=== PATIENT | female | born 1990 | race Caucasian/White ===

== ENCOUNTER 2017-03-09 09:31 | Emergency (ER) | payer OTHER ==
[~2017-03-09] VITALS: Ht 157.5 cm; Wt 68.0 kg
--- NOTE | ~2017-03-09 | EKG ---
[place] [address] [facility] [place] [address] ELECTROCARDIOGRAM REPORT Name: ELIZABETHSYDNEE [id number] Admission: 03/09/17 Attend Phys: Discharge: Date of : 89 Report #: [id number] THIS REPORT FOR: //name// [facility] ED Test Date: 2017-03-09 Test Time: 10:10:51 Pat Name: SYDNEE JOHNSON Department: Room: Gender: [employer]: SANTHOSH : 1990 Requested By: Renate Garg Order Number: [id number] MD: Nacho Harris Measurements Intervals [place] Rate: 76 P: 33 OR: 111 QRS: 28 QRSD: 81 T: 20 QT: 373 QTc: 420 Interpretive Statements Sinus rhythm Borderline short OR interval No previous ECG available for comparison Electronically Signed On 03-09-2017 11:20:13 [employer] by Nacho Harris [email or web address] <ELECTRONICALLY SIGNED> By: Nacho Harris MD 03/09/17 1120 1010 1010 Nacho Harris MD /ANTOINETTE
[~2017-03-09 09:31] MED LIST: HUMULIN N100 UNIT/3; HUMULINR100; KEFLEX250 MG PO; PHENAZOPYRIDIN200 M2 PO; SYNTHROID125 MCG PO
[2017-03-09 10:17] LABS: ABSOLUTE NEUTROPHILS 3.5 thou/uL (1.4-8.2); BASOPHILS 0.4 % (0.0-2.0); EOSINOPHILS 1.4 % (0.0-3.0); HEMATOCRIT 38.4 % (37.0-47.0); HEMOGLOBIN 12.4 gm/dL (12.0-15.0); LYMPHOCYTES 23.1 % (24.0-44.0); MCH 24.7 pg (26.0-34.0); MCHC 32.3 g/dL (28.0-37.0); MCV 76.4 fL (80.0-100.0); MONOCYTES 7.9 % (1.0-8.0); PLATELET COUNT 279 thou/uL (150-400); POLYS 67.2 % (36.0-66.0); RBC 5.03 mil/uL (4.20-5.00); RDW 14.4 % (10.5-14.5); WBC 5.2 thou/uL (4.0-11.0)
[2017-03-09 10:30] LABS: POTASSIUM 4.1 mmol/L (3.5-5.1)
[2017-03-09 10:31] LABS: MANUAL DIFF NO
[2017-03-09 10:36] LABS: ALBUMIN 3.7 g/dL (3.4-5.0); TOTAL BILIRUBIN 0.6 mg/dL (<0.1-1.0); TOTAL PROTEIN 7.9 g/dL (6.4-8.2)
[2017-03-09 10:42] LABS: URINE BILIRUBIN NEGATIVE (Negative); URINE BLOOD TRACE (Negative); URINE COLOR YELLOW; URINE GLUCOSE-RANDOM* 2+ (Negative); URINE KETONES 2+ (Negative); URINE NITRITE NEGATIVE (Negative); URINE PROTEIN (DIPSTICK) NEGATIVE (Negative); URINE UROBILINOGEN 0.2 E.U./dl (0.2-1.0)
[2017-03-09] MEDS ORDERED: MECLIZINE HCL12.5 MG PO (11:23)
[2017-03-09 11:34] VITALS: BP 121/75
== END 2017-03-09 11:36 | disposition home or self-care (01) ==
LOC: ER 09:31
PROVIDERS: Physician Assistant
DX: R42 Dizziness and giddiness (principal); E86.0 Dehydration; E11.9 Type 2 diabetes mellitus without complications

== ENCOUNTER 2019-01-08 10:16 | Emergency (ER) | payer OTHER ==
[~2019-01-08] VITALS: Ht 162.6 cm; Wt 84.4 kg
[~2019-01-08 10:16] MED LIST changes: +MECLIZINE HCL12.5 MG PO
[2019-01-08 10:50] LABS: URINE BILIRUBIN NEGATIVE (Negative); URINE BLOOD 1+ (Negative); URINE CLARITY CLEAR; URINE COLOR YELLOW; URINE GLUCOSE-RANDOM* 3+ (Negative); URINE KETONES 1+ (Negative); URINE LEUKOCYTES-REFLEX NEGATIVE (Negative); URINE NITRITE-REFLEX NEGATIVE (Negative); URINE PROTEIN (DIPSTICK) NEGATIVE (Negative); URINE SPECIFIC GRAVITY 1.015 (1.005-1.035); URINE UROBILINOGEN 0.2 E.U./dl (0.2-1.0)
[2019-01-08 11:15] LABS: BACTERIA-REFLEX None Seen /HPF (None Seen); CASTS None Seen /LPF (None Seen); CRYSTALS None Seen /LPF (None Seen); SQUAMOUS 0-3 Few /LPF (0-3); URINE RBC 0-2 Rare /HPF (0-2); URINE WBC-REFLEX None Seen /HPF (0-5)
[2019-01-08 11:57] LABS: ABSOLUTE NEUTROPHILS 2.3 thou/uL (1.4-8.2); BASOPHILS 0.6 % (0.0-2.0); EOSINOPHILS 2.4 % (0.0-3.0); HEMOGLOBIN 11.1 gm/dL (12.0-15.0); MCH 24.3 pg (26.0-34.0); MCHC 32.7 g/dL (28.0-37.0); MCV 74.3 fL (80.0-100.0); MONOCYTES 10.3 % (1.0-8.0); PLATELET COUNT 278 thou/uL (150-400); POLYS 59.7 % (36.0-66.0); RBC 4.57 mil/uL (4.20-5.00); RDW 14.9 % (10.5-14.5); WBC 3.8 thou/uL (4.0-11.0)
[2019-01-08 12:05] LABS: CREATININE 0.8 mg/dL (0.6-1.0)
[2019-01-08 12:11] LABS: ALBUMIN 3.4 g/dL (3.4-5.0); TOTAL BILIRUBIN 0.5 mg/dL (<0.1-1.0); TOTAL PROTEIN 7.5 g/dL (6.4-8.2)
[2019-01-08] MEDS ORDERED: BENTYL 20 MG TA20 M1 PO (12:33)
[2019-01-08] MEDS ORDERED: ONDANSETRON HCL4 M2 PO (12:33)
[2019-01-08 13:10] VITALS: BP 114/70
== END 2019-01-08 13:10 | disposition home or self-care (01) ==
LOC: ER 10:16
PROVIDERS: Emergency Medicine
DX: E11.65 Type 2 diabetes mellitus with hyperglycemia (principal); R10.33 Periumbilical pain; R11.2 Nausea with vomiting, unspecified; E03.9 Hypothyroidism, unspecified; Z79.4 Long term (current) use of insulin